=== PATIENT | female | born 1935 | race Caucasian/White ===

== ENCOUNTER 2016-10-02 13:17 | Emergency (ER) | payer MEDICARE, BC ==
[2016-10-02] MEDS ORDERED: DIPHTH,PERTUSS(ACELL),TET VAC 0.5 ML VIAL IM V ONE (13:44)
--- NOTE | 2016-10-02 14:26 | CT ---
HEAD CT WITHOUT CONTRAST HISTORY: Status post fall, hit bridge of nose. No intravenous contrast administered. Contiguous axial images acquired from skull base to vertex. COMPARISON:None. BRAIN VOLUME:Grossly unremarkable for patient age. VENTRICULAR SIZE:No gross ventriculomegaly. FOCAL MASS EFFECT:None. ACUTE INTRACRANIAL HEMORRHAGE:None. CALVARIUM: No depressed calvarial fracture. VISIBLE PARANASAL SINUSES AND MASTOID AIR CELLS: Minor debris within the left sphenoid sinus. SOFT TISSUES: Glabellar soft tissue prominence. IMPRESSION: Evidence of soft tissue injury. No mass effect, depressed calvarial fracture or acute intracranial hemorrhage. Left sphenoid sinus mucosal disease. Results were electronically transmitted to the electronic medical record at 10/02/2016 at 1423 hours.
--- NOTE | 2016-10-02 14:31 | CT ---
MAXILLOFACIAL CT HISTORY: Status post fall on face. No intravenous contrast administered contiguous axial images acquired through the maxillofacial structures. FINDINGS: MANDIBLE: Normal alignment of the temporomandibular joints. No displaced fracture identified. Asymmetric degeneration of the right temporomandibular joint. PTERYGOID PLATES: Grossly intact. ZYGOMATIC ARCHES: Grossly intact. NASAL BONES: Deformity compatible nondisplaced right nasal bone fracture. Minor soft tissue swelling is noted.. NASAL SEPTUM: Rightward septal deviation with minor spurring, likely long-standing. PARANASAL SINUSES: Debris within the left maxillary and sphenoid sinuses with osteitis suggesting chronic inflammation. VISIBLE TYMPANOMASTOID CAVITIES: Clear. FRACTURE: No displaced fracture identified. AIRWAY: Grossly patent. ORBITS: Evidence of prior cataract surgery. No evidence of lens dislocation or retrobulbar hematoma.. VISIBLE INTRACRANIAL COMPARTMENT: No gross mass effect. IMPRESSION: 1. Nondisplaced right nasal bone fracture. No additional fracture identified. Associated paranasal soft tissue swelling. 2. 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 3. Evidence of prior cataract surgery. 4. Asymmetric degeneration of the right temporomandibular joint. Results were electronically transmitted to the electronic medical record at 10/02/2016 at 1428 hours.
--- NOTE | 2016-10-02 14:35 | CT ---
CERVICAL SPINE CT WITHOUT CONTRAST HISTORY: Status post fall on face. No intravenous contrast administered contiguous axial images acquired from the posterior fossa to the lower T2 level. FINDINGS ALIGNMENT: Grossly unremarkable. COMPRESSION DEFORMITY: No dominant compression deformity. Nonacute endplate herniations at C5 and C6. DISC SPACES: Prominent disc space narrowing at C6-7 with moderate narrowing at C4-5 and C5-6 with multilevel disc osteophyte ridge formation.. FRACTURE: No displaced fracture. DEGENERATIVE CHANGE: Asymmetric moderately severe facet degeneration at the left L3-4 level. Small central protrusion at C2-3. Asymmetric uncovertebral degeneration at C3-4. Disc osteophyte information the C4-5 through C6-7 levels.. FORAMINAL NARROWING: Mild narrowing at the left C3-4 level, moderate narrowing at the right C5-6 level. PARASPINAL SOFT TISSUES: Airway patent. No gross mass effect. LUNG APICES: Grossly unremarkable within field of view. IMPRESSION: No cervical spine fracture identified. Moderate changes of cervical spondylosis with asymmetric left facet degeneration at C3-4. Results were electronically transmitted to the electronic medical record at 10/02/2016 at 1431 hours.
--- NOTE | 2016-10-02 15:41 | RAD ---
HAND-LEFT 3 VIEWS COMPARISON: None. HISTORY: Ground-level fall. Left hand pain. Initial encounter. IMPRESSION: Views: Left hand PA, oblique, lateral. Bones: Oblique displaced fracture distal shaft of the fourth metacarpal shortening the length of the bone. Joints: Normal. Soft tissues: Normal. IMPRESSION: Oblique displaced fracture distal shaft of the left fourth metacarpal shortening the length of the bone.
== END 2016-10-02 16:15 | disposition home or self-care (01) ==
LOC: ED 13:17
DX: S62.325A Displaced fracture of shaft of fourth metacarpal bone, left hand, initial encounter for closed fracture (principal); S02.2XXA Fracture of nasal bones, initial encounter for closed fracture; M47.812 Spondylosis without myelopathy or radiculopathy, cervical region; S09.90XA Unspecified injury of head, initial encounter; Z23 Encounter for immunization; W18.30XA Fall on same level, unspecified, initial encounter; Y93.01 Activity, walking, marching and hiking; Y92.9 Unspecified place or not applicable

== ENCOUNTER 2016-10-09 05:30 | Day surgery (SDC) | payer MEDICARE, BC ==
--- NOTE | 2016-10-08 10:17 | HP ---
DATE OF CLINIC: 10/04/16 YOJANA FERNANDES : 1935 PLANNED PROCEDURE: Left 4th Metacarpal ORIF vs. Percutaneous Pinning DATE OF SURGERY: October 09, 2016 SURGEON: Jarrell Boland M.D. PCP: Dr. Teagan Braun REFERRED HERE [facility] ED. HISTORY OF PRESENT ILLNESS Yojana Fernandes is a 80 year old female. * Medication list reviewed with patient allergy list reviewed with patient. * Has not tried NSAIDS. This is a 80, almost 81-year-old right-hand dominant female who was seen in the emergency department on October 02, 2016 after a fall from ground level when she sustained an injury to her left hand. Examination in the emergency department demonstrated a fracture of her fourth metacarpal shaft with shortening of rotation. She was placed into an altered gutter splint and sent to orthopedics for follow up. On presentation today, she states that she is having very minimal pain with the splint in place. She is tolerating the splint without difficulty. She has no previous injuries at the site. She has no numbness or tingling in her digits and no other extremity complaints. She does have some significant facial ecchymosis getting her head during the same fall, but she denies any loss of consciousness and has been appropriately worked up for this. PAST MEDICAL AND SURGICAL HISTORY: Past medical and surgical history are significant work hypothyroidism status post thyroidectomy in July 1981 and hypercholesterolemia. She is a non-smoker and lives locally. She has four children. CURRENT MEDICATION * Atorvastatin Calcium 10 MG Tablet 1 once a day 90 days, 0 refills * Oxycodone-Acetaminophen 5-325 MG Tablet as directed 3 days, 0 refills * Synthroid 50 MCG Tablet 1 once a day 90 days, 0 refills PAST MEDICAL/SURGICAL HISTORY Reported: Medical: Cholesterol problems. A previous fracture Left 4th metacarpal fx 10/02/16 and Thyroid Disorder. Surgical / Procedural: Thyroidectomy 1980 and Tonsilectomy 1941. Surgical: * Hysterectomy 1969 SOCIAL HISTORY Behavioral: Not a current smoker and not chewing tobacco. Smoking status: Never smoker. Alcohol: No consumption of alcohol. Drug Use: Not using drugs. Work: Retired insurance claims analyst. ALLERGIES * No Known Allergies No reaction to anesthetics. FAMILY HISTORY 4 children living Cancer Father REVIEW OF SYSTEMS No recent constitutional symptoms to include fevers and chills. No recent cardiovascular symptoms to include chest pain or palpitations. No recent respiratory symptoms to include shortness of breath or recent infections. PHYSICAL FINDINGS * Vitals taken 10/04/2016 09:38 am BP-Sitting R 133/78 mmHg BP Cuff Size Regular Pulse Rate-Sitting 72 bpm Temp-Oral 98.2 F Height 64 in Weight 135 lbs Body Mass Index 23.2 kg/m2 Body Surface Area 1.66 m2 Pain Level 0 Neurological: Motor: * Dominant Hand = Right Hand. Patient is a well-developed, well-nourished female in no acute distress. They are awake, alert and conversant throughout the encounter. She appears younger than her stated age. CARDIOVASCULAR: Intact peripheral pulses on bilateral upper extremities. No significant edema on inspection of bilateral upper extremities. NEUROLOGIC: Patient had intact coordinated composite motion of the bilateral upper extremities and sensation intact to light touch in all distributions of bilateral upper extremities. PSYCHIATRIC: Patient was oriented to person, place and time and displayed appropriate mood and affect during the encounter. SKIN: Exam of the skin on bilateral upper extremities showed no significant scars, lesions, rashes or masses. FOCUSED MUSCULOSKELETAL EXAM: The patient has normal resting station of the shoulder, elbow and wrist of the left side. She has an ulnar gutter splint in place and her fingers are warm and well perfused. She has intact sensation and brisk capillary refill. Motion at the wrist and hand is limited to secondary to pain in the finger. She has the appearance of a rotational deformity with supination of her fourth finger relative to the other digits. She has good range of motion at the distal portion of the finger. TESTS * Test: CBC NO DIFF Report Date: 10/04/2016 WBC 8.5 10*3/mL MCV 90.7 fL RBC 4.32 10*6/uL MCH 28.0 pg MCHC 30.9 g/dL Low RDW 16.3 % High PLATELET COUNT 503 10*3/mL High HCT 39.2 % HGB 12.1 g/L * Test: COMPREHENSIVE METABOLIC PANEL Report Date: 10/04/2016 ALT/SGPT 12 U/L ALBUMIN 4.5 g/dL ALB/GLOB RATIO 2.0 BUN 18 mg/dL BUN/CREAT RATIO 18 CALCIUM 9.3 mg/dL GLUCOSE 100 mg/dL CREATININE 1.0 mg/dL SODIUM 141 meq/L POTASSIUM 4.3 meq/L CHLORIDE 104 meq/L CARBON DIOXIDE 30 meq/L ANION GAP 11 meq/L TOT PROTEIN 6.7 g/dL GLOBULIN 2.2 g/dL Low BILI,TOTAL 0.5 mg/dL AST/SGOT 20 U/L ALK PHOSPHATASE 68 U/L GFR 53 Low IMAGING A review of her x-rays demonstrates an oblique, spiral fracture of the distal diaphysis of the fourth metacarpal with shortening and supination deformity. ASSESSMENT A 80-year-old right-hand dominant female with a left fourth metacarpal fracture with unacceptable alignment parameters. THERAPY * Patient fall risk screen positive. * Patient eligible for fall risk assessment. * Patient received fall risk assessment. PLAN The plan will be for closed reduction and percutaneous skeletal fixation of this metacarpal fracture to prevent rotational deformity. The risks, benefits and alternatives were discussed with the patient and she elected to proceed with surgery. Informed consent was obtained and documented in the chart and the patient will be placed on the schedule the first available convenience. CARE TEAM Teagan Braun MD Internal Medicine SURGICAL CONSENT We have discussed surgical options including left 4th metacarpal ORIF vs. percutaneous pinning and nonoperative management. The patient was counseled in detail regarding the diagnosis, treatment options available, prognosis of each treatment option and the potential risks and complications. The risks of surgery include, but are not limited to, anesthetic , neurovascular complications, pulmonary embolism, deep vein thrombosis, wound dehiscence, failure of any or all of the discussed procedures, infection of the joint or surrounding soft tissue, need for revision surgery, chronic pain, limitations in activities of daily living, inability to return to work, and loss of normal range of motion or functional use of the extremity. There is the possibility of failure over time that may require additional operative or nonoperative treatment. The patient acknowledged that there are a number of perioperative risks not mentioned here and would still like to proceed. The patient is aware of and understands these risks, and wishes to proceed with the proposed surgical procedure and other procedures as indicated at the time of surgery. We will have the patient see their PCP for a preoperative medical risk assessment. The preoperative instructions were reviewed with the patient and all questions were answered.
[2016-10-09] MEDS ORDERED: IV START KIT ONE (05:36)
[2016-10-09] MEDS ORDERED: LACTATED RINGERS 1,000 ML ONE ×2 (05:36→08:22)
[2016-10-09] MEDS ORDERED: CEFAZOLIN SODIUM 2 GRAM PREMIX 100 ML IV PRN (05:45)
[2016-10-09] MEDS ORDERED: CEFAZOLIN SODIUM 2 GRAM PREMIX 100 ML IV ONE (06:30)
[2016-10-09] MEDS ORDERED: MIDAZOLAM HCL 1 MG/ML 2ML VIAL ONE (06:53)
[2016-10-09] MEDS ORDERED: FENTANYL 100 MCG/2 ML VIAL ONE ×2 (06:53→07:50)
[2016-10-09] MEDS ORDERED: DEXAMETHASONE SOD PHOS 4 MG/1 ML VIAL ONE (07:01)
[2016-10-09] MEDS ORDERED: ONDANSETRON 4 MG/2ML 2 ML VIAL ONE (07:01)
[2016-10-09] MEDS ORDERED: PROPOFOL 20 ML IV ONE (07:01)
[2016-10-09] MEDS ORDERED: LIDOCAINE 1% (PRES FREE) 30 ML VIAL ONE (07:03)
[2016-10-09] MEDS ORDERED: BUPIVACAINE 0.5% (PRES FREE) 30 ML VIAL ONE (07:03)
[2016-10-09] MEDS ORDERED: EPHEDRINE SULFATE UD SYR 25 MG 25 MG/5 ML SYRINGE IV ONE (07:31)
[2016-10-09] MEDS ORDERED: GLYCOPYRROLATE 0.2 MG/ML 1ML VIAL ONE (07:31)
[2016-10-09] MEDS ORDERED: ATROPINE SULFATE 0.4 MG/1 ML VIAL IV PRN (07:39)
[2016-10-09] MEDS ORDERED: FENTANYL 100 MCG/2 ML VIAL IV PRN (07:39)
[2016-10-09] MEDS ORDERED: ONDANSETRON 4 MG/2ML 2 ML VIAL IV PRN ×2 (07:39→08:31)
[2016-10-09] MEDS ORDERED: NALOXONE HCL 0.4 MG/ML VIAL IV PRN (07:39)
[2016-10-09] MEDS ORDERED: PROMETHAZINE HCL 25 MG/ML VIAL IM PRN (07:39)
[2016-10-09] MEDS ORDERED: LACTATED RINGERS 1,000 ML IV SCH ×2 (07:45→08:31)
--- NOTE | 2016-10-09 08:15 | PCMBPN ---
Brief Post Op Note: Date of Procedure: 10/09/16 Start Time: 0740 Preoperative Diagnosis: 1. left ring finger metacarpal fracture Postoperative Diagnosis: 1. Same Procedure: left ring finger CRPP Surgeon: Jarrell Boland MD Assist: Urmila Rodriguez Anesthesia: Kings Burrows Findings: as above Condition: stable to PACU Complications: none IV Fluids: 700 mLs of LR Urine Output: 0 mLs Estimated Blood Loss: 1 mLs Tourniquet Time: none Specimens: none Implants: 2x1.6mm k wires Drains: none Jarrell Boland MD
--- NOTE | 2016-10-09 08:27 | RAD ---
Exam: Two-view left hand COMPARISON: 10/02/2016 INDICATION: Left fourth metacarpal pinning. Findings: Fluoroscopy was provided for Dr. Boland. Radiologist was not present. 22 seconds of fluoroscopy time was utilized. 2 static images were submitted for interpretation. These images demonstrate 2 percutaneous pins through the fourth metacarpal fracture. Fracture fragments are in improved alignment. This examination is otherwise limited for interpretation. IMPRESSION: Fluoroscopy was provided for Dr. Boland for percutaneous pinning of the left fourth metacarpal fracture.
[2016-10-09] MEDS ORDERED: OXYCODONE/ACETAMINOPHEN 5/325 MG TABLET PO PRN (08:31)
[2016-10-09] MEDS ORDERED: HYDROMORPHONE HCL 1 MG/ML SYRINGE IV PRN (08:31)
[2016-10-09] MEDS ORDERED: ACETAMINOPHEN 325 MG TABLET PO PRN (08:31)
[2016-10-09] MEDS ORDERED: DIPHENHYDRAMINE HCL 50 MG/1 ML VIAL IV PRN (08:31)
[2016-10-09] MEDS ORDERED: OXYCODONE/ACETAMINOPHEN 5/325 MG TABLET ONE (09:25)
--- NOTE | 2016-10-10 10:40 | OP ---
Yojana FERNANDES : 1935 [id number] DATE OF SERVICE: October 09, 2016 PREOPERATIVE DIAGNOSIS: Left ring finger metacarpal fracture. POSTOPERATIVE DIAGNOSIS: Left ring finger metacarpal fracture. PROCEDURE PERFORMED: LEFT RING FINGER CLOSED REDUCTION AND PERCUTANEOUS PINNING. SURGEON: Jarrell Boland M.D. HEEL SEATER: Sharita Vaz ANESTHESIA: Keiry McneillNJuan Jose SPECIMENS: No material was sent to the laboratory. ESTIMATED BLOOD LOSS: 1 mL FLUIDS REPLACED: 7 mL crystalloid URINE OUTPUT: None. TOURNIQUET TIME: No tourniquet. SPECIMENS: None. IMPLANTS: Two 1.6 mm K-wires. INDICATIONS: This is an 81-year-old right-hand dominant female who sustained a fracture to her left ring finger metacarpal resulting in a supination deformity with scissoring of her digits. In order to correct this deformity we offered her a closed reduction and percutaneous pinning. Risks, benefits of discussed with the patient and she elected to proceed. Informed consent was obtained and documented in the chart. DESCRIPTION OF PROCEDURE: The patient was identified in the preoperative holding area and marked with an indelible. She was taken to the operating room where she underwent a general anesthesia. She was prepped and draped in the usual sterile fashion for surgery. Perioperative antibiotics were administered and an operative time out was performed and confirmed by all members of the operative team. Using a mini c-arm we applied longitudinal traction to her ring finger and we were able to reduce the finger to a satisfaction position. Two 1.6 mm K-wires were passed percutaneously from distal radial to proximal ulnar just volar to the MCP joint of the middle finger. C-arm images confirmed appropriate positioning and stabilization of the fracture and her cascade was corrected with no scissoring of the digits. The pins were bent over and cut off. Xeroform was placed around the base of the pins and a sterile dressing of fluffs, web roll, and a volar and ulnar splint was applied with the patient in safe position. The drapes were removed. The patient was awakened from her anesthesia, extubated in the room and transferred to the stretcher and taken postoperatively the postanesthesia care unit in stable. There were no observed intraoperative complications during this procedure. Job [id number] Cc: [facility]
== END 2016-10-09 09:50 | disposition home or self-care (01) ==
LOC: SDC 05:30
PROVIDERS: ATTEND Orthopaedic Surgery
PROC: 0PSQ34Z Reposition Left Metacarpal with Internal Fixation Device, Percutaneous Approach (ICD-10-PCS; principal; 2016-10-09)
DX: S62.395A Other fracture of fourth metacarpal bone, left hand, initial encounter for closed fracture (principal); W18.30XA Fall on same level, unspecified, initial encounter; E03.9 Hypothyroidism, unspecified; E78.00 Pure hypercholesterolemia, unspecified
CPT/HCPCS: 76000; 73120; 26608; J3010 ×2; J1100; A9270; J2250; J2405; J7120 ×2; J0690